=== PATIENT | female | born 1990 | race African-American/Black ===

== ENCOUNTER 2018-11-26 04:57 | Inpatient (IN) ==
[2018-11-26] MEDS ORDERED: KEFZOL 1 GM/D5W 1 GM/50 ML IVPB IV PRN (04:59)
[2018-11-26] MEDS ORDERED: PEPCID PO ONE (04:59)
[2018-11-26] MEDS ORDERED: LR 1,000 ML IV SCH (05:00)
[2018-11-26] MEDS ORDERED: BICITRA PO ONE (05:02)
[2018-11-26] MEDS ORDERED: REGLAN IV ONE (05:02)
[2018-11-26 05:41] LABS: URINE SOURCE VOIDED
[2018-11-26 05:48] LABS: BILIRUBIN URINE NEGATIVE (NEGATIVE); BLOOD URINE TRACE (NEGATIVE); GLUCOSE URINE NEGATIVE (NEGATIVE); KETONE URINE NEGATIVE (NEGATIVE); LEUKOCYTES URINE 2+ (NEGATIVE); NITRITE URINE NEGATIVE (NEGATIVE); PROTEIN URINE TRACE mg/dL (NEGATIVE); UROBILINOGEN URINE NORMAL
[2018-11-26 05:49] LABS: CLARITY HAZY (CLEAR); COLOR YELLOW
[2018-11-26 05:53] LABS: BASO# 0.01 X1000 (0.0-0.2); BASO% 0.1 % (0.0-0.8); EOS# 0.24 X1000 (0.0-0.7); EOS% 2.5 % (0.0-10.0); HEMATOCRIT 29.3 % (37.0-47.0); HEMOGLOBIN 9.7 g/dL (12.0-16.0); IMM GRAN# 0.02 X1000 (0.0-0.04); IMM GRAN% 0.2 % (0.0-0.5); LYMPH# 3.16 X1000 (1.2-3.4); LYMPH% 32.4 % (20.5-51.1); MCH 29.9 PG (27-31); MCHC 33.1 g/dL (33-37); MCV 90.4 FL (81-99); MONO% 8.2 % (1.7-9.3); MPV 9.9 FL (7.4-10.4); NEUT# 5.52 X1000 (1.4-6.5); NEUT% 56.6 % (42.2-75.2); PLT 353 X1000 (130-400); RBC 3.24 XMIL (4.2-5.4); RDW 12.9 % (11.5-14.5); WBC 9.75 X1000 (4.8-10.8)
[2018-11-26 05:57] LABS: UR AMPHETAMINES QUAL NONE DETECTED (NONE DETECT); UR BARBITUATES QUAL NONE DETECTED (NONE DETECT); UR BENZODIAZEPIN QUAL NONE DETECTED (NONE DETECT); UR CANNABINOIDS QUAL NONE DETECTED (NONE DETECT); UR COCAINE QUAL NONE DETECTED (NONE DETECT); UR METHADONE QUAL NONE DETECTED (NONE DETECT); UR METHAMPHETAMINE QUAL NONE DETECTED (NONE DETECT); UR OPIATES QUAL NONE DETECTED (NONE DETECT); UR OXYCODONE QUAL NONE DETECTED (NONE DETECT); UR PCP QUAL NONE DETECTED (NONE DETECT); UR PROPOXYPHENE QUAL NONE DETECTED (NONE DETECT); UR TCA QUAL NONE DETECTED (NONE DETECT)
--- NOTE | 2018-11-26 06:06 | HISTORY AND PHYSICAL ---
HISTORY OF PRESENT ILLNESS: Patient is a 28-year-old, black female, G 3, P 2, who will be 37 weeks on 11/26/2018 with twins. Has a history of a prior section. complicated by gestational hypertension. The patient also desires a tubal ligation and also during this , she is being treated for anemia. PAST MEDICAL HISTORY: Unremarkable. PAST SURGICAL HISTORY: section x1. She has also had left knee surgery. PAST OB HISTORY: G 3, P2. Spontaneous vaginal delivery x1. section x1. PHOTOGRAPHY COORDINATOR HISTORY: Menarche at age 8. FAMILY HISTORY: Significant for high blood pressure. REVIEW OF SYSTEMS: All systems reviewed and noncontributory. SOCIAL HISTORY: Tobacco use, none. Alcohol use, none. MEDICATIONS: Labetalol 100 mg b.i.d., vitamins and iron. ALLERGIES: No known drug allergies. PHYSICAL EXAMINATION: VITAL SIGNS: Height 5 feet 6 inches, weight 225 pounds, blood pressure 143/98, pulse 72, respirations 20. heart rate in the 130s. HEENT: Pupils equal, round, and reactive to light and accommodation. Extraocular movements intact. Oropharynx clear. NECK: Supple. No thyromegaly. LUNGS: Clear to auscultation. HEART: Regular rate and rhythm. ABDOMEN: Gravid. Fundal height was noted to be 43 cm. Ultrasound was performed that showed a vertex-vertex presentation. The group B strep culture was obtained. EXTREMITIES: Mild lower extremity edema was noted. DTRs 1+ bilaterally. NEUROLOGIC: Cranial nerves 2-12 grossly intact. Motor 5/5. ASSESSMENT AND PLAN: A 28-year-old, black female, 3, para 2, at 37 weeks with twin gestation and history of prior section, for a section due to complication of gestational hypertension. The patient is scheduled for a repeat section on 11/26/2018. At that time, we will also perform a tubal ligation. The patient was counseled about the risks of surgery including bleeding, infection, bowel or bladder injury. Patient also counseled about the permanency of tubal ligation, failure rate of 2-08/999, as well as the availability of reversible alternatives such as intrauterine device, control pills, patches, etc. cc: Pancho Gonzalez III, MD
[2018-11-26] MEDS ORDERED: DURAMORPH ONE (06:54)
[2018-11-26] MEDS ORDERED: PITOCIN ONE (06:55)
[2018-11-26] MEDS ORDERED: EPHEDRINE ONE (06:55)
[2018-11-26] MEDS ORDERED: TORADOL ONE (06:56)
[2018-11-26] MEDS ORDERED: ZOFRAN ONE (06:56)
[2018-11-26] MEDS ORDERED: HYDROXYZINE IM PRN (08:14)
[2018-11-26] MEDS ORDERED: PITOCIN IM PRN (08:14)
[2018-11-26] MEDS ORDERED: MYLICON PO PRN (08:14)
[2018-11-26] MEDS ORDERED: DULCOLAX PR PRN (08:14)
[2018-11-26] MEDS ORDERED: DEMEROL PO PRN ×2 (08:14)
[2018-11-26] MEDS ORDERED: PITOCIN 20 UNITS/NS 20 UNITS/1,000 ML IV.SOLN IV ONE (08:14)
[2018-11-26] MEDS ORDERED: AMBIEN PO PRN (08:14)
[2018-11-26] MEDS ORDERED: M-M-R II VACCINE SUBQ ONE (08:14)
[2018-11-26] MEDS ORDERED: BOOSTRIX VACCINE IM ONE (08:14)
[2018-11-26] MEDS ORDERED: PHENERGAN IM PRN (08:14)
[2018-11-26] MEDS ORDERED: DEMEROL IM PRN (08:14)
[2018-11-26] MEDS ORDERED: ATARAX PO PRN (08:14)
--- NOTE | 2018-11-26 09:21 | OPERATIVE NOTE ---
PROCEDURE DATE: 11/26/2018 PREOPERATIVE DIAGNOSES: 1. Intrauterine at 37 weeks with twin gestation. 2. History of previous section. 3. Desires sterilization. 4. Gestational hypertension. POSTOPERATIVE DIAGNOSES: 1. Intrauterine at 37 weeks with twin gestation. 2. History of previous section. 3. Desires sterilization. 4. Gestational hypertension. 5. Operative delivery of a male , 5 pounds and 15 ounces, with Apgars of 9 and 10 at 0713 on 11/26/2018; and female infant, 5 pounds and 8 ounces, with Apgars of 8 and 10 at 0714 on 11/26/2018. PROCEDURE PERFORMED: Repeat low-transverse section and bilateral tubal ligation. SURGEON: Pancho Gonzalez III, MD. ROSIN BARREL FILLER: Dr. Redding. ANESTHESIA: Spinal, Dr. Valdez. FINDINGS: Normal-appearing uterus, tubes, and ovaries. First infant, male, was vertex. Second infant, female, was breech. COMPLICATIONS: None. ESTIMATED BLOOD LOSS: 700 mL. SPECIMENS REMOVED: Right and left fallopian tubal segments. DRAINS: Valenzuela to straight drain. COUNTS: All counts were correct x3. INDICATIONS: Patient is a 28-year-old, black female, G 3, P 2, with twin gestation at 37 weeks gestation with gestational hypertension requiring medication. Patient is also with a history of previous section and desires sterilization. She was scheduled for a repeat section and tubal ligation. Patient counseled about the risks of surgery including bleeding, infection, bowel or bladder injury. Patient was also counseled about the permanency of tubal ligation, failure rate of 2 to 08/999, as well as the alternatives that are considered reversible such as IUD, control pills, patches, etc. DESCRIPTION OF PROCEDURE: The patient was taken to labor and delivery OR. Spinal anesthesia was employed. The patient was placed in a supine position with a roll under her right hip. She was then prepped and draped in a sterile fashion with placement of a Valenzuela catheter. Prepped and draped in a sterile fashion. Allis clamps were used to test the anesthesia and good anesthesia was noted with the Allis clamps. A Pfannenstiel skin incision was made on the lower abdomen using a scalpel. This was taken down sharply to the fascial layer. A small teodoro was made in the rectus fascia. Fascial incision was then extended bilaterally with the curved Rubalcava scissors. Then blunt and sharp dissection of the rectus fascia superiorly and inferiorly was then used to dissect the rectus fascia. The rectus muscles were then divided in the midline. Peritoneal layer was entered bluntly. The peritoneal incision was extended superiorly and inferiorly with care taken to avoid the bladder. Bladder reflection was created using Metzenbaum scissors and DeBakey's. Then bladder blade was placed into the abdominal cavity. A transverse incision was made on the lower uterine segment. This was then extended bilaterally by the surgeon's fingers. The first , rupture of membranes showed clear fluid. Vertex was noted and delivery of the head was accomplished with gentle fundal pressure. Bulb suctioned the nose and mouth. The rest the body was delivered atraumatically. The umbilical cord was clamped twice and cut. Infant was handed to nursery nurse in attendance for delivery. Cord blood sample was obtained at this time. The second twin was noted be breech. Rupture of membranes and then the breech extraction was performed without difficulty and with gentle fundal pressure and atraumatically. The head was delivered and bulb suctioned the nose and mouth. Umbilical cord was clamped twice with two cords on the second twin. Then infant was handed to nursery nurse in attendance for delivery. Cord blood sample was obtained. Then the placenta was then manually extracted. Uterus was then exteriorized. Wet lap was placed around the uterus. Dry lap was then used to curette the uterine cavity of clots and debris. The uterine incision was then closed using 0 chromic in a running, locking fashion x1. Then a small area of oozing that was noted on the left corner was made hemostatic with a [id number] of 0 chromic. At this point in time, the right fallopian tube was grasped with Jens clamp near the isthmus. Then a small hole was made in the mesosalpinx using electrocautery and a 0 plain suture was then used to ligate a portion of the fallopian tube. This was then excised using Metzenbaum scissors. Electrocautery was then used on the open ostia and good hemostasis was noted. The tubal segment was handed off to be placed in a specimen container. Attention was then turned to the left fallopian tube. It was grasped near the isthmus. A small area in the mesosalpinx was penetrated using electrocautery and then 0 plain suture was used to ligate a portion of the fallopian tube. This portion was then excised using Metzenbaum scissors and handed to be placed in a specimen container. Electrocautery was then used to obtain hemostasis on the ostia. Inspection of the uterine incision and bladder reflection showed good hemostasis. The posterior cul-de-sac was then irrigated copiously. The uterus was then replaced back into the abdominal cavity. The pericolic gutters were cleansed using moist lap sponges. The uterine incision was once again inspected and good hemostasis was noted. The peritoneal layer was then closed using 2-0 chromic in a running fashion x1 and interrupted 2-0 chromic on the rectus muscle x2 for reapproximation. Then the fascial layer was then closed using 0 PDS in a running fashion x1. Subcutaneous layer was then irrigated. Electrocautery was used to obtain hemostasis. Then the skin was reapproximated using rocael. Patient tolerated the procedure well and was taken to the recovery room in stable condition. All counts were correct x3. cc: Pancho Gonzalez III, MD
[2018-11-26] MEDS: MYLICON PO SCH ×5 (09:38→19:46)
[2018-11-26] MEDS: TRANDATE PO SCH ×2 (09:39→21:19)
[2018-11-26] MEDS: TORADOL IV SCH ×2 (09:43→16:43)
--- NOTE | 2018-11-26 19:03 | OB/GYN PROGRESS NOTE ---
Progress Note OB - . Patient Problems: Current Active Problems Problem Status Onset Twin Acute Hypertension affecting Acute OB Progress Note: Vital Signs - 24 hr 11/26/18 07:50 11/26/18 08:00 11/26/18 08:10 Temperature 96.4 F L Pulse Rate 75 60 53 L Respiratory Rate 18 18 18 Blood Pressure 114/53 Blood Pressure [Left Arm] 114/53 116/62 110/62 O2 Sat by Pulse Oximetry 100 99 98 11/26/18 08:20 11/26/18 08:30 11/26/18 08:40 Temperature Pulse Rate 70 64 58 L Respiratory Rate 18 18 18 Blood Pressure Blood Pressure [Left Arm] 130/67 145/70 118/75 O2 Sat by Pulse Oximetry 100 100 100 11/26/18 08:50 11/26/18 15:40 Temperature Pulse Rate 78 Respiratory Rate 18 Blood Pressure 116/59 Blood Pressure [Left Arm] 116/59 O2 Sat by Pulse Oximetry 100 98 Laboratory Results - last 24 hr 11/26/18 11/26/18 11/26/18 05:10 05:10 05:20 WBC RBC Hgb Hct MCV MCH MCHC RDW Std Deviation Plt Count MPV Immature Gran % (Auto) Neut % (Auto) Lymph % (Auto) [place] % (Auto) Eos % (Auto) Baso % (Auto) Immature Gran # (Auto) Neut # (Auto) Lymph # (Auto) [place] # (Auto) Eos # (Auto) Baso # (Auto) Urine Source VOIDED Urine Color YELLOW Urine Clarity HAZY A Urine pH 7.0 Ur Specific [place] 1.010 Urine Protein TRACE A Urine Ketones NEGATIVE Urine Blood TRACE Urine Nitrite NEGATIVE Urine Bilirubin NEGATIVE Urine Urobilinogen NORMAL Urine WBC 2+ A Urine Glucose NEGATIVE Urine Opiates Screen NONE DETECTED Ur Oxycodone Screen NONE DETECTED Urine Methadone Screen NONE DETECTED U Propoxyphene Qual NONE DETECTED Ur Barbituates Screen NONE DETECTED Ur Tricyclics Screen NONE DETECTED Ur Phencyclidine Scrn NONE DETECTED Ur Amphetamines Screen NONE DETECTED U Methamphetamines Scrn NONE DETECTED U Benzodiazepines Scrn NONE DETECTED Urine Cocaine Screen NONE DETECTED U Cannabinoids Screen NONE DETECTED RPR NON-REACTIVE Blood Type Antibody Screen 11/26/18 11/26/18 05:20 05:20 WBC 9.75 RBC 3.24 L Hgb 9.7 L Hct 29.3 L MCV 90.4 MCH 29.9 MCHC 33.1 RDW Std Deviation 12.9 Plt Count 353 MPV 9.9 Immature Gran % (Auto) 0.2 Neut % (Auto) 56.6 Lymph % (Auto) 32.4 [place] % (Auto) 8.2 Eos % (Auto) 2.5 Baso % (Auto) 0.1 Immature Gran # (Auto) 0.02 Neut # (Auto) 5.52 Lymph # (Auto) 3.16 [place] # (Auto) 0.80 H Eos # (Auto) 0.24 Baso # (Auto) 0.01 Urine Source Urine Color Urine Clarity Urine pH Ur Specific [place] Urine Protein Urine Ketones Urine Blood Urine Nitrite Urine Bilirubin Urine Urobilinogen Urine WBC Urine Glucose Urine Opiates Screen Ur Oxycodone Screen Urine Methadone Screen U Propoxyphene Qual Ur Barbituates Screen Ur Tricyclics Screen Ur Phencyclidine Scrn Ur Amphetamines Screen U Methamphetamines Scrn U Benzodiazepines Scrn Urine Cocaine Screen U Cannabinoids Screen RPR Blood Type O POSITIVE Antibody Screen NEGATIVE NOS Pt seen doing well Pain well controlled no N/V O Vitals as above Gen: AAOx3 NAD CV: RRR no g/m/r Lungs: CTAB no w/r/r Abd: +BS soft martine tender incision with bandage over it Ext: SCDs in place A: POD#0 s/p CD wit BTL anemia P: Cont post-op mgmt
[2018-11-26] MEDS: PITOCIN 10 UNITS/NS 1,000 ML IV SCH ×2 (19:20→19:21)
[2018-11-26] MEDS: PERICOLACE PO SCH (21:18)
[2018-11-26] MEDS: NORCO-10 PO PRN (21:19)
[2018-11-27 06:35] LABS: BASO# 0.02 X1000 (0.0-0.2); BASO% 0.1 % (0.0-0.8); EOS# 0.22 X1000 (0.0-0.7); EOS% 1.2 % (0.0-10.0); HEMATOCRIT 22.6 % (37.0-47.0); HEMOGLOBIN 7.2 g/dL (12.0-16.0); IMM GRAN# 0.05 X1000 (0.0-0.04); IMM GRAN% 0.3 % (0.0-0.5); LYMPH% 18.2 % (20.5-51.1); MCH 29.4 PG (27-31); MCHC 31.9 g/dL (33-37); MCV 92.2 FL (81-99); MONO# 1.12 X1000 (0.11-0.59); MONO% 6.2 % (1.7-9.3); MPV 9.8 FL (7.4-10.4); NEUT# 13.46 X1000 (1.4-6.5); PLT 294 X1000 (130-400); RBC 2.45 XMIL (4.2-5.4); RDW 12.8 % (11.5-14.5); WBC 18.17 X1000 (4.8-10.8)
[2018-11-27] MEDS: MOTRIN PO PRN ×2 (08:05→16:02)
[2018-11-27] MEDS: NORCO-5 PO PRN ×3 (08:05→21:40)
[2018-11-27] MEDS ORDERED: LR 1,000 ML IV SCH (08:14)
[2018-11-27] MEDS: FERROUS SULFATE PO SCH (09:48)
[2018-11-27] MEDS: TRANDATE PO SCH ×2 (09:48→21:41)
[2018-11-27] MEDS: MYLICON PO SCH ×7 (09:48→21:41)
[2018-11-27] MEDS ORDERED: BENADRYL CREAM TOP PRN (10:55)
[2018-11-27] MEDS: PERICOLACE PO SCH (21:40)
[2018-11-28] MEDS: MOTRIN PO PRN ×3 (00:52→19:24)
[2018-11-28] MEDS: NORCO-5 PO PRN (05:26)
[2018-11-28 05:36] LABS: BASO# 0.03 X1000 (0.0-0.2); BASO% 0.2 % (0.0-0.8); EOS# 0.41 X1000 (0.0-0.7); EOS% 2.8 % (0.0-10.0); HEMATOCRIT 19.4 % (37.0-47.0); HEMOGLOBIN 6.3 g/dL (12.0-16.0); IMM GRAN# 0.05 X1000 (0.0-0.04); IMM GRAN% 0.3 % (0.0-0.5); LYMPH# 3.82 X1000 (1.2-3.4); LYMPH% 25.8 % (20.5-51.1); MCH 30.1 PG (27-31); MCHC 32.5 g/dL (33-37); MCV 92.8 FL (81-99); MONO# 1.19 X1000 (0.11-0.59); MPV 8.7 FL (7.4-10.4); NEUT# 9.33 X1000 (1.4-6.5); NEUT% 62.9 % (42.2-75.2); PLT 277 X1000 (130-400); RBC 2.09 XMIL (4.2-5.4); WBC 14.83 X1000 (4.8-10.8)
--- NOTE | 2018-11-28 08:25 | OB/GYN PROGRESS NOTE ---
Progress Note OB - . Patient Problems: Current Active Problems Problem Status Onset Twin Acute Hypertension affecting Acute OB Progress Note: Vital Signs - 24 hr 11/27/18 11:30 11/27/18 15:50 11/27/18 19:18 Temperature 96.8 F L 96.6 F L Pulse Rate 86 94 H Respiratory Rate 20 20 Blood Pressure 130/66 128/68 O2 Sat by Pulse Oximetry 100 100 100 11/27/18 20:20 11/28/18 00:55 Temperature 98.1 F 97 F L Pulse Rate 92 H 85 Respiratory Rate 18 16 Blood Pressure 124/66 135/60 O2 Sat by Pulse Oximetry 100 98 Laboratory Results - last 24 hr 11/28/18 05:23 WBC 14.83 H RBC 2.09 L Hgb 6.3 L Hct 19.4 L MCV 92.8 MCH 30.1 MCHC 32.5 L RDW Std Deviation 13.0 Plt Count 277 MPV 8.7 Immature Gran % (Auto) 0.3 Neut % (Auto) 62.9 Lymph % (Auto) 25.8 [place] % (Auto) 8.0 Eos % (Auto) 2.8 Baso % (Auto) 0.2 Immature Gran # (Auto) 0.05 H Neut # (Auto) 9.33 H Lymph # (Auto) 3.82 H [place] # (Auto) 1.19 H Eos # (Auto) 0.41 Baso # (Auto) 0.03 POD# 2 TWINS at 37 weeks c/s CHTN - Pt state she feels well. Kishor reg diet. Decreased libido. Ambulating. Good pain control. No SOB, CP or leg pain. No LEWIS, changes in vision or RUQ pain. VSS AF Gen - Pt in no apparent distress A&O x 3 ABD - sof, NT, ND, FF Wound - CDI Extreme - no CCE A/P - POD#2 - LTCD HTN - no s/sx of pre-e. BP meds have been held due to severe anemia. Severe anemia - D/w pt RBA. HgB 7->6. Will transfuse 2U PRBC
[2018-11-28] MEDS ORDERED: BENADRYL PO ONE (08:27)
[2018-11-28] MEDS ORDERED: TYLENOL PO ONE (08:27)
[2018-11-28] MEDS: FERROUS SULFATE PO SCH (08:43)
[2018-11-28] MEDS: MYLICON PO SCH ×4 (08:43→21:24)
[2018-11-28] MEDS ORDERED: NS 1,000 ML IV SCH (10:15)
[2018-11-28] MEDS: NORCO-10 PO PRN (14:23)
[2018-11-28] MEDS: PERCOCET-10 PO PRN ×2 (19:24→23:50)
[2018-11-28] MEDS ORDERED: TRANDATE PO ONE (19:28)
[2018-11-28] MEDS: PERICOLACE PO SCH (21:24)
[2018-11-28 22:27] LABS: HEMATOCRIT 25.1 % (37.0-47.0); HEMOGLOBIN 8.3 g/dL (12.0-16.0)
[2018-11-29] MEDS: MOTRIN PO PRN (05:24)
[2018-11-29] MEDS: MYLICON PO SCH ×3 (08:42→08:59)
--- NOTE | 2018-11-29 08:55 | OB/GYN PROGRESS NOTE ---
Progress Note OB - . Patient Problems: Current Active Problems Problem Status Onset Twin Acute Hypertension affecting Acute OB Progress Note: Vital Signs - 24 hr 11/28/18 10:40 11/28/18 11:35 11/28/18 11:57 Temperature 97.2 F L 97.3 F L 97 F L Pulse Rate 93 H 99 H 87 Respiratory Rate 20 20 16 Blood Pressure 141/79 145/91 152/82 O2 Sat by Pulse Oximetry 100 100 100 11/28/18 15:30 11/28/18 17:19 11/28/18 17:29 Temperature 97 F L 97.1 F L 97.7 F Pulse Rate 95 H 82 83 Respiratory Rate 20 20 20 Blood Pressure 141/90 161/79 150/82 O2 Sat by Pulse Oximetry 100 11/28/18 19:00 11/28/18 20:44 11/28/18 23:51 Temperature 97.6 F 97.5 F L 97.8 F Pulse Rate 85 85 73 Respiratory Rate 18 18 18 Blood Pressure 154/91 151/83 164/79 O2 Sat by Pulse Oximetry 99 98 99 11/29/18 03:51 11/29/18 08:35 Temperature 97.6 F 96.8 F L Pulse Rate 82 75 Respiratory Rate 18 18 Blood Pressure 161/79 169/77 O2 Sat by Pulse Oximetry 99 100 Laboratory Results - last 24 hr 11/26/18 11/28/18 05:20 22:00 Hgb 8.3 L D Hct 25.1 L D Blood Type O POSITIVE Antibody Screen NEGATIVE Crossmatch See Detail Pt. had an elective repeat c.section on for Twins at Term. Hx of chronic hypertension on Lebatalol 100mg bid. Pt has had a normal post op recover period. Pt has no complaints. B/P elevated this AM but she has not received her Labetalol 100mg yet. Her B/P meds had been d/c but were restarted last night. Incision is dry and intact. Darryn in place. no signs of infection. Abd: soft and nontender. Fundus is soft and nontender. Bleeding is minimal. No calf tenderness. A/P: Stable for discharge home. F/U with Dr Gonzalez this week for B/P check and to have stables removed. Rx for pain meds were left on her chart by Dr Gonzalez. I left a RX for Labetalol 100 mg bid.
[2018-11-29] MEDS: FERROUS SULFATE PO SCH (08:58)
[2018-11-29] MEDS: PERCOCET-10 PO PRN (09:00)
[2018-11-29] MEDS ORDERED: TRANDATE PO SCH (09:00)
[2018-11-29 10:20] VITALS: BP 134/86
== END 2018-11-29 11:45 | disposition home or self-care (01) | DRG 785 ==
LOC: P.LD 04:57
PROVIDERS: ADMIT Obstetrics & Gynecology; ATTEND Obstetrics & Gynecology
CPT/HCPCS: 36430; 59025; 80104; 80301; 80305; 81003; 85014; 85018; 85025; 86592; 86850; 86900; 86901; 86920; 90715; 94761; 94799; A9270; G0431; G0434; G0477; J1885; J2274; J2275; J2405; J2590; J2765; J3410; J7120; P9016; Q9974